=== PATIENT | female | born 2000 | race Caucasian/White ===

== ENCOUNTER 2023-10-23 05:37 | Day surgery (SDC) | payer OTHER ==
[2023-10-21 14:59] LABS: BASOPHILS % (AUTO) 0.2 % (0-1); EOSINOPHILS % (AUTO) 0 % (0-6); LYMPHOCYTES # (AUTO) 2.5 X10'3 (1.1-4.8); LYMPHOCYTES % (AUTO) 24.2 % (21-51); MEAN CORPUSCULAR HEMOGLOBIN 29.7 PG (27.0-31.0); MEAN CORPUSCULAR HGB CONC 33.7 g/dL (33.0-36.5); MEAN CORPUSCULAR VOLUME 87.9 FL (78-98); MONOCYTES # (AUTO) 0.6 X10'3 (0-0.9); MONOCYTES % (AUTO) 6.4 % (2-12); NEUTROPHILS % (AUTO) 69.2 % (42-75); PRE OP HEMOGLOBIN 13.1 g/dL (12.0-16.0); PRE OP PLATELET COUNT 212 X10'3 (140-440); PRE OP WHITE BLOOD COUNT 10.1 10'3 (4.8-10.8); RED BLOOD COUNT 4.43 X10'6 (4.20-5.60); RED CELL DISTRIBUTION WIDTH 12.4 % (11.5-14.5)
[2023-10-21 15:12] LABS: ALBUMIN 3.2 G/DL (3.4-5.0); ALBUMIN/GLOBULIN RATIO 0.9 (1.1-1.5); BLOOD UREA NITROGEN 8 MG/DL (7-18); BUN/CREATININE RATIO 13.8 (10.0-20.0); CHLORIDE 104 MMOL/L (99-107); CREATININE 0.58 MG/DL (0.40-0.90); PRE OP ANION GAP 10 (8-16); PRE OP BILIRUB, TOTAL 0.3 MG/DL (0.0-1.0); PRE OP GLUCOSE 104 MG/DL (70-104); PRE OP POTASSIUM 3.6 MMOL/L (3.4-5.1); PRE OP SODIUM 138 MMOL/L (135-145); TOTAL CARBON DIOXIDE 24.4 MMOL/L (24-32); TOTAL PROTEIN 6.9 G/DL (6.4-8.2); eGFR > 90 ML/MIN
[2023-10-21 15:53] LABS: ALKALINE PHOSPHATASE 49 IU/L (46-116); HCG SERUM QL NEGATIVE; PRE OP ALT 32 U/L (30-65); PRE OP AST 22 U/L (10-37)
[2023-10-23] VITALS (7 sets, daily range): BP systolic 133–140; BP diastolic 78–91; PULSE 63–69; RESP 14–16; TEMP 97.7; O2SAT 98–99
[~2023-10-23] VITALS: Ht 166.1 cm; Wt 73.3 kg
[~2023-10-23 05:37] MED LIST: NO HOME MEDS; cefazolin 2gm/D5W 100mL 100 ML IV ONE; famotidine 20mg tablet PO ONE; ringers solution, lacted 1,000 ML IV SCH
[2023-10-23] MEDS ORDERED: BUPIVAcaine/PF 2.5mg/ml (0.25%) 10ml vial ONE (06:36)
[2023-10-23] MEDS ORDERED: MIDAZolam 1 MG/ML 5ML VIAL ONE (07:31)
[2023-10-23] MEDS ORDERED: fentaNYL/PF 50MCG/1 ML 2ML syringe ONE (07:31)
[2023-10-23] MEDS ORDERED: LIDOcaine 0.5% (5mg/ml) 50ml vial ONE (08:01)
== END 2023-10-23 08:35 | disposition home or self-care (01) ==
LOC: PAS 05:37
PROVIDERS: ATTEND Orthopaedic Surgery Hand Surgery
DX: M67.432 Ganglion, left wrist (principal); J45.909 Unspecified asthma, uncomplicated; D64.9 Anemia, unspecified; Z91.041 Radiographic dye allergy status; Z79.899 Other long term (current) drug therapy; Z98.818 Other dental procedure status; Z72.89 Other problems related to lifestyle
CPT/HCPCS: 25111; 36415; 80053; 82948; 84703; 85025; J0690; J2250; J3010; J3490; J7030; J7120; Z7506; Z7512; A4215; A4618; A6449; A7000